=== PATIENT | female | born 1955 | race Caucasian/White ===

== ENCOUNTER → 2017-01-16 | Outpatient (CLI) | payer OTHER ==
[~2017-01-16] MED LIST: ALEVE220 M1 PO; GLUCOPHAGE850 MG PO; NOVOLOG MI100 UNIT/1 SQ; PRAVASTATIN SOD40 MG PO
--- NOTE | ~2017-01-16 | US85 ---
[facility] A Service [facility] RADIOLOGY TEXT RESULTS PATIENT: GREGG HINKLE LOCATION: SNIV : 57 UNIT #: [id number] AGE: [address]: Seng Gomez MD SEX: F ORDER DR: [id number] [place] [id number] O MR#: [id number] Acc #: [id number] NAME: GREGG HINKLE : 1955 SEX: F STUDY DATE/TIME: 01/16/2017 13:19 UNIT: SNIV ROOM: STUDY DESCRIPTION: [facility] Unil or [facility] Stdy Attending Physician: Seng Gomez M.D. Referring Physician: Seng Gomez M.D. Ordering Physician: Seng Gomez M.D. Primary Care Physician: Seng Gomez M.D. MEDICAL IMAGING REPORT This report is preliminary unless electronic signature is present. EXAM Right lower extremity venous ultrasound. HISTORY Right lateral thigh pain for 1.5 weeks. No history of DVT. Please TECHNIQUE Venous ultrasound examination of the right lower extremity was performed using grayscale, spectral Doppler and color flow Doppler imaging. FINDINGS The examination is negative. There is no evidence of right lower extremity deep venous thrombus from the groin to the lower calf. Visualized greater saphenous vein is also patent. IMPRESSION Negative examination. No evidence of right lower extremity deep venous thrombosis. Dictated by... Alphonso Ovalle M.D. THIS IS AN ELECTRONICALLY VERIFIED REPORT Alphonso Ovalle M.D. at 01/16/2017 4:49 PM LOBITO/hari TD: 01/16/2017 15:46 JOB #: [id number] MEDICAL IMAGING REPORT [facility] A Service [facility] RADIOLOGY TEXT RESULTS PATIENT: GREGG HINKLE LOCATION: SNIV : 57 UNIT #: [id number] AGE: [address]: Seng Gomez MD SEX: F ORDER DR: Page 1 of 1
== END | disposition home or self-care (01) ==
LOC: SNIV 12:41
DX: M79.604 Pain in right leg (principal)
CPT/HCPCS: 93971